=== PATIENT | female | born 1995 | race Caucasian/White ===

== ENCOUNTER 2020-09-13 15:41 | Emergency (ER) | payer OTHER, MEDICAID, SELFPAY ==
[2020-09-13 15:53] VITALS: BP 127/90; PULSE 93; RESP 16; TEMP 37; O2SAT 97; BMI 24.0
--- NOTE | 2020-09-13 16:30 | PC.NURSE ---
Chaperoned pelvic exam with provider.
[2020-09-13] MEDS: valACYclovir 500 MG TABLET PO (17:27)
[2020-09-13] MEDS: metroNIDAZOLE 500 MG TABLET PO (17:27)
--- NOTE | 2020-09-13 17:58 | ED.FEMALEGU ---
HPI - Female Genitourinary <JESSICA Ferreira - Last Filed: 09/13/20 18:17> General Chief complaint: Urogenital-Female Stated complaint: vaginal discomfort Time Seen by Provider: 09/13/20 15:49 Source: patient Mode of arrival: Ambulatory Limitations: no limitations History of Present Illness HPI Narrative: The patient is a 24-year-old female who presents with a chief complaint of vaginal discomfort. She uses marijuana, has a history of general herpes. She states that she has been irritated vaginally for the past 4 5 days. She states that the right side of her labia. Sore and painful. Denies any known gonorrhea chlamydia exposures, and has 1 partner. She denies any abnormal vaginal discharge. Denies any fevers nausea vomiting diarrhea. Denies any muscle aches or chills. Denies any abdominal pain Related Data Previous Rx's Medication Instructions Recorded Vitamins (PRENAVITE) 1 tab PO QDAY #100 tab 10/04/16 cholecalciferol (vitamin D3) 1,000 mcg PO QDAY #100 tab 10/04/16 [Vitamin D3] ibuprofen 600 mg PO Q6HP PRN #30 tab-cap 02/13/17 amoxicillin 500 mg PO Q8H #30 cap 06/12/17 albuterol sulfate [Ventolin HFA] 0 puff INH Q4HP PRN #1 ea 08/22/17 amoxicillin 500 mg PO Q8H #30 cap 08/22/17 prednisone 20 mg PO SEE INSTRUCTIONS #15 tab 08/22/17 albuterol sulfate [Proventil HFA] 1 - 2 puff INH Q4HP PRN #6.7 gm 10/05/17 metronidazole 500 mg PO BID #14 tab 09/13/20 valacyclovir 500 mg PO BID 7 Days #14 tab 09/13/20 Allergies Allergy/AdvReac Type Severity Reaction Status Date / Time No Known Allergies Allergy Uncoded 01/24/18 12:39 Review of Systems <JESSICA Ferreira - Last Filed: 09/13/20 18:17> Review of Systems Narrative: GENERAL: Denies chills, fatigue, malaise, fever, sweats. HEENT: Denies sinus pain, ear pain, sore throat, difficulty swallowing, dizziness. RESPIRATORY: Denies dyspnea, cough, wheezing, hemoptysis, sputum. CARDIOVASCULAR: Denies chest pain, palpitations, orthopnea, edema, GASTROINTESTINAL: Denies nausea, vomiting, abdominal pain, diarrhea, constipation, melena. : See HPI MUSCULOSKELETAL: denies weakness, joint pain, or bony pain SKIN: Denies rash, skin lesions, or other NEUROLOGIC: Denies weakness, headache, numbness, change in speech, confusion, seizures, incoordination. PSYCHIATRIC: No concerning psychosocial issues. 12 point review of systems is negative except for those stated above Patient History <JESSICA Ferreira - Last Filed: 09/13/20 18:17> Family History (Updated 08/30/16 @ 00:00 by Conversion Provider) Mother Age: 47 Asthma Sister Age: 27 Asthma Substance Use Type: marijuana Exam <JESSICA Ferreira - Last Filed: 09/13/20 18:17> Narrative Exam Narrative: GENERAL: This is a well-nourished, well-developed patient, in no acute distress HEAD: Atraumatic. Normocephalic. No temporal or scalp tenderness. EYES: Pupils equal round and reactive. Extraocular motions intact. No scleral icterus. No injection or drainage. ENT: Nose without bleeding, purulent drainage or septal hematoma. Wearing a mask. Airway patent. NECK: Trachea midline. No JVD or lymphadenopathy. Supple, nontender, no meningeal signs. CARDIOVASCULAR: Regular rate and rhythm RESPIRATORY: Clear to auscultation. Breath sounds equal bilaterally. No wheezes, rales, or rhonchi. No cough. No increased respiratory effort. No accessory muscle use. GASTROINTESTINAL: Abdomen soft, non-tender, nondistended. No hepato-splenomegaly, or palpable masses. No guarding. Active bowel sounds all 4 quadrants. : Pelvic exam with Dot RN at bedside. Cluster of vesicles noted on right sided labia minora. Clear and white vaginal discharge noted on pelvic exam. No cervical motion tenderness. EXTREMITIES: No clubbing, cyanosis, or edema. No joint tenderness, effusion, or edema noted. BACK: Nontender without deformity or crepitance. No flank tenderness. NEURO: AOx3. SKIN: No rash or erythema. Initial Vital Signs Initial Vital Signs: Vital Signs Temperature 98.6 F 09/13/20 15:53 Pulse Rate 93 H 09/13/20 15:53 Respiratory Rate 16 09/13/20 15:53 Blood Pressure 127/90 09/13/20 15:53 Pulse Oximetry 97 09/13/20 15:53 <Jackelyn Jacobson DO - Last Filed: 09/14/20 07:16> Initial Vital Signs Initial Vital Signs: Vital Signs Temperature 98.6 F 09/13/20 15:53 Pulse Rate 93 H 09/13/20 15:53 Respiratory Rate 16 09/13/20 15:53 Blood Pressure 127/90 09/13/20 15:53 Pulse Oximetry 97 09/13/20 15:53 Scores <JESSICA Ferreira - Last Filed: 09/13/20 18:17> GCS [place] coma scale eye opening: Spontaneous Edie coma scale verbal response: Orientated [place] coma scale motor response: Obey commands Edie coma scale total score: 15 Course <JESSICA Ferreira - Last Filed: 09/13/20 18:17> Orders Ordered: Discontinued Medications Metronidazole (Metronidazole 500 Mg Tablet) 500 mg PO NOW ONE Stop: 09/13/20 17:16 Last Admin: 09/13/20 17:27 Dose: 500 mg Documented by: RENNY Valacyclovir HCl (Valacyclovir 500 Mg Tablet) 500 mg PO NOW ONE Stop: 09/13/20 17:16 Last Admin: 09/13/20 17:27 Dose: 500 mg Documented by: RENNY Vital Signs Vital signs: Vital Signs - 8 hr 09/13/20 15:53 09/13/20 18:03 Temperature 98.6 F 98.2 F Pulse Rate 93 H 79 Respiratory Rate 16 16 Blood Pressure 127/90 119/75 Pulse Oximetry 97 97 <DO Kaitlynn Weber Last Filed: 09/14/20 07:16> Orders Ordered: Discontinued Medications Metronidazole (Metronidazole 500 Mg Tablet) 500 mg PO NOW ONE Stop: 09/13/20 17:16 Last Admin: 09/13/20 17:27 Dose: 500 mg Documented by: RENNY Valacyclovir HCl (Valacyclovir 500 Mg Tablet) 500 mg PO NOW ONE Stop: 09/13/20 17:16 Last Admin: 09/13/20 17:27 Dose: 500 mg Documented by: RENNY Vital Signs Vital signs: Vital Signs - 8 hr 09/13/20 15:53 09/13/20 18:03 Temperature 98.6 F 98.2 F Pulse Rate 93 H 79 Respiratory Rate 16 16 Blood Pressure 127/90 119/75 Pulse Oximetry 97 97 MDM - Female Genitourinary <JESSICA Ferreira - Last Filed: 09/13/20 18:17> Lab Data Labs: Point of Care Testing Test Results Negative Urine Dip Bedside Urine Glucose Negative Bedside Urine Bilirubin - Negative Bedside Urine Ketone - Negative Urine Specific [place] 1.030 Bedside Urine Occult Blood - Negative Bedside Urine pH 6.0 Bedside Urine Protein - Negative Bedside Urine Urobilinogen - Negative Bedside Urine Nitrite - Negative Bedside Urine Leukocytes - Negative Esterase [facility] Narrative Medical decision making narrative: The patient is a 24-year-old female who presents with a chief complaint of vaginal pain. Clue cells on wet prep illustrate bacterial vaginosis, correlated by discharge. Physical exam is concerning for HSV, which correlates to patient history. Will treat her with metronidazole and valacyclovir at this point time. Discussed holding off in sexual activity until this is resume. Encouraged follow-up with primary care provider in the next few days. Given that she has no cervical motion tenderness on exam, will hold off on treatment for PID this time. Gonorrhea chlamydia urine testing is pending at this point time, will hold off on treatment at this point. Discussed that we will call her if findings come back positive. Patient has no questions or concerns upon discharge and state understanding of return precautions as well as follow-up care. <Jackelyn Jacobson DO - Last Filed: 09/14/20 07:16> Lab Data Labs: Point of Care Testing Test Results Negative Urine Dip Bedside Urine Glucose Negative Bedside Urine Bilirubin - Negative Bedside Urine Ketone - Negative Urine Specific [place] 1.030 Bedside Urine Occult Blood - Negative Bedside Urine pH 6.0 Bedside Urine Protein - Negative Bedside Urine Urobilinogen - Negative Bedside Urine Nitrite - Negative Bedside Urine Leukocytes - Negative Esterase Discharge Plan Departure Patient Disposition: Home Clinical Impression: Bacterial vaginosis Genital herpes Qualifiers: Herpes simplex infection site: unspecified Qualified Code(s): A60.00 - Herpesviral infection of urogenital system, unspecified Instructions: The Facts About Genital Herpes, DI for Bacterial Vaginosis, DI for Genital Herpes Activity Restrictions/Additional Instructions: Thank you for trusting us with your care today. As discussed, today your exam is concerning for bacterial vaginosis as well as a genital herpes outbreak. I sent 2 prescriptions to [facility] in [place]. We have given you your 1st doses here in the ER as the pharmacy is closed right now As discussed, the other swabs and STD testing will result in a few days. We will call you if any of them result positive or worrisome findings.. Please follow-up with primary care provider in the next few days. Please come back to the emergency department for any acute concerns. This includes abdominal pain with fever etcetera Prescriptions: New valacyclovir 500 mg tablet 500 mg PO BID 7 Days Qty: 14 RF: 0 metronidazole 500 mg tablet 500 mg PO BID Qty: 14 RF: 0 No Action cholecalciferol (vitamin D3) [Vitamin D3] 1,000 UNIT tablet 1,000 mcg PO QDAY Qty: 100 RF: 3 Vitamins (PRENAVITE) 1 tab PO QDAY Qty: 100 RF: 3 ibuprofen 600 MG tablet 600 mg PO Q6HP PRNQty: 30 RF: 0 amoxicillin 500 MG capsule 500 mg PO Q8H Qty: 30 RF: 0 amoxicillin 500 MG capsule 500 mg PO Q8H Qty: 30 RF: 0 prednisone 20 MG tablet 20 mg PO SEE INSTRUCTIONS Qty: 15 RF: 0 albuterol sulfate [Ventolin HFA] 90 MCG/PUFF HFA aerosol inhaler 0 puff INH Q4HP PRNQty: 1 RF: 3 albuterol sulfate [Proventil HFA] 90 MCG/PUFF HFA aerosol inhaler 1 - 2 puff INH Q4HP PRNQty: 6.7 RF: 3 Referrals: Syeda Blount MD [Primary Care Provider] - <Jackelyn Jacobson DO - Last Filed: 09/14/20 07:16> [facility] ED Attending Bethature Attestation: I was immediately available in the department for consultation. Documentation has been reviewed. I agree with assessment and plan.
[2020-09-13 18:03] VITALS: BP 119/75; PULSE 79; RESP 16; TEMP 36.8; O2SAT 97
[2020-09-16 23:15] LABS: Chlamydia trachomatis Negative (Negative); Mycoplasma genitalium Negative (Negative); Neisseria gonorrhoeae Negative (Negative)
== END 2020-09-13 18:08 | disposition home or self-care (01) ==
PROVIDERS: Emergency Provider Nurse Practitioner Family; Family Provider Specialist; PCP Specialist
DX: N76.0 Acute vaginitis (principal); A60.00 Herpesviral infection of urogenital system, unspecified
CPT/HCPCS: 81003; 81025; 87070; 87147; 87205; 87210; 87491; 87591; 99281; 99283